=== PATIENT | female | born 1990 | race Hispanic/Latino ===

== ENCOUNTER 2020-03-28 06:59 | Inpatient (IN) | payer OTHER ==
[2020-03-28] MEDS ORDERED: CARBOPROST TROME 250 MCG/ML IM PRN (07:21)
[2020-03-28] MEDS ORDERED: Ringers Lactate 1,000 ML IV PRN (07:21)
[2020-03-28] MEDS ORDERED: PROMETHAZINE INJ 25 MG/ML AMP IM PRN (07:21)
[2020-03-28] MEDS ORDERED: METHYLERGONOVINE 0.2MG/ML AMP IM PRN (07:21)
[2020-03-28] MEDS ORDERED: BUTORPHANOL 1 MG/ML INJ IV PRN (07:21)
[2020-03-28] MEDS ORDERED: OXYTOCIN/LR 20 UNIT/1,000 ML BAG IV SCH ×2 (08:00→17:00)
[2020-03-28] MEDS ORDERED: Ringers Lactate 1,000 ML IV SCH (08:00)
[2020-03-28 08:11] LABS: Absolute Lymphocytes (CBC) 1.7 K/uL (0.7-4.9); Basophils % 0.3 % (0-1.3); Hematocrit 30.9 % (36.0-45.0); Lymphocytes % 15.1 % (15.3-44.8); MPV 8.2 fL (7.6-11.3)
--- NOTE | 2020-03-28 09:10 | PREOPHP ---
Date of Admission: 03/28/2020 History Of Present Illness: A 29-year-old, 3, para 2, history of herpes, herpes free interva l. This patient was scheduled for induction later in the week. Experienced spontaneous rupture of m embranes at 4 a.m., came to Labor and Delivery. Indeed has spontaneous rupture of membranes, clear f luid. Minimal contractions at this point. Labor talk given. She is Rh positive, immune to Rubella. Negative strep. COVID status is pending. We will start Pitocin at this point. Anticipate deliver y sometime later today. Full labor talk given. The patient has had epidurals with her other deliver ies, probably with this one too, but right now she of course is comfortable and requires nothing as f ar as analgesics. 38 weeks 4 days, spontaneous rupture of membranes, history of herpes, herpes free interval. Family History: Shows a grandfather with a heart attack, sister with gallstones, and aunt with diabe lanette. Allergies: PATIENT HAS NO ALLERGIES. Social History: Does not smoke. Medications: vitamins prior to admission. Physical Examination: HEENT: Clear. Pupils equal, round, reactive to light and accommodation. Conjunctivae well perfused . No oral, lingual, or buccal lesions. Chest and Lungs: Clear. Heart: Without murmurs, thrills, heaves, or rubs on previous visits. Breasts: Not examined today. Abdomen: Term size. Extremities: Clear without edema, cyanosis, or clubbing. Patient is 2-1/2, possibly 3, baby still -2 station; vertex; clear fluid noted. Anticipate delivery. We will start Pitocin at this point. EDUARD/MILES Voice ID: [id number]
[2020-03-28 09:15] VITALS: BMI 35.7
--- NOTE | 2020-03-28 09:25 | PN ---
Patient has a history of herpes in the buttocks area. She had an outbreak about a week ago. It has now completely resolved. I see nothing, she sees nothing, the nurses see nothing. At this point, th e patient has been given the option of proceeding vaginally. She has been on acyclovir or to have a . The patient chooses to have a vaginal delivery. She knows that the virus of course is inv isible and that we cannot guarantee that she did not have herpes at this moment, but this is what the standard has been throughout the country; if there is a herpes free interval, the patient is on acyc lovir, no visible lesions, then a vaginal delivery is offered. The patient, however, of course, has a choice to proceed with operative delivery if she so chooses, but this patient declines operative de mitchell. EDUARD/MILES Voice ID: [id number] Report ID: [id number]
--- NOTE | 2020-03-28 12:40 | PN ---
Svetlana Serra is navjot regularly, now on 12 milliunits of Pitocin, but does not seem to be feeling numb yet. Cervical exam shows no change whatsoever, definite clear fluid coming from the os. Baby looks very good on the monitor. Vital signs were all stable. If she has started having some discomfort in the next 0.5 hours, we will change out the Pitocin bag to make sure we have a fresh Pit ocin. The patient has requests no analgesics and looks quite calm at this point. We need to get mor e firm contractions. BERTRANDC/MODL Voice ID: [id number] Report ID: [id number]
[2020-03-28] MEDS ORDERED: ROPIVACAINE HCL 100 ML IV PRN (15:00)
[2020-03-28] MEDS ORDERED: ROPIVACAINE HCL 0.2% 20ML AMP IV ONE (15:00)
[2020-03-28] MEDS ORDERED: FENTANYL CITR 100 MCG/2 ML IV ONE (15:00)
[2020-03-28] MEDS ORDERED: BISACODYL 10 MG RECTAL SUPP PR PRN (16:17)
[2020-03-28] MEDS ORDERED: DOCUSATE NA/SENNA CONC 1 TAB PO PRN (16:17)
[2020-03-28] MEDS ORDERED: Oxycodone HCl/Acetaminophen 1 TAB TAB PO PRN ×2 (16:17)
[2020-03-28] MEDS ORDERED: DIPHENHYDRAMINE 25 MG TAB/CAP PO PRN (16:17)
[2020-03-28] MEDS ORDERED: ACETAMINOPHEN 500 MG TAB PO PRN (16:17)
[2020-03-28] MEDS ORDERED: LIDOCAINE 1% MPF 30 ML VIAL ONE (17:59)
[2020-03-28] MEDS ORDERED: Ringers Lactate 2,000 ML IV ONE (18:07)
--- NOTE | 2020-03-29 00:16 | OP ---
Surgeon: Yobany Bravo MD Indications And Procedure: A 29-year-old 3, para 2, 38 weeks 4 days, came in with spontaneou s rupture of membranes, clear fluid, Rh positive, immune to Rubella. Negative beta-strep screen. CO VID status unknown. Started on Pitocin augmentation. After achieving 4.5 to 5 cm, requested epidura l anesthesia, but during the epidural, begin to push, delivered precipitously but controlled a 7 poun ds 2 ounces female, Apgars 9 and 9. Sustained a vertical first-degree laceration below the clitoris, local infiltration, 2 stitches, [id number] with 2-0 plain, significant bleeder at that point bu t now stopped. Estimated blood loss during the procedure 250-300 cc, mostly from the small laceratio n. Schultze delivery of the placenta, which was heavily calcified, but otherwise normal and intact. Very small lochia amount at this point. Tolerated all procedures well. Final Diagnoses: Term intrauterine at 38 weeks 4 days, history of herpes on her buttocks a carmelita, more than a week of herpes free interval, on acyclovir, and declined , vaginal delivery precipitous but controlled. EDUARD/MILES Voice ID: [id number] Report ID: [id number]
[2020-03-29 00:35] LABS: RPR (Rapid Plasma Reagin) NON-REACT (NON-REACT)
[2020-03-29] MEDS: IBUPROFEN 600 MG TAB PO PRN ×2 (05:30→14:13)
--- NOTE | 2020-03-29 11:38 | DS ---
Hospital Course: A 29-year-old, 3, para 2, 38 weeks 4 days, experienced spontaneous rupture of membranes. Came into Labor and Delivery, was started on Pitocin augmentation. Had no anesthesia during the labor as she was requesting epidural, but precipitously delivered. Right after, the test dose was given. She delivered 7 pounds 2 ounces female, Apgars 9 and 9. Had 1 vertical laceration b elow the clitoris that was bleeding fairly significantly. Two rthhua-ky-tepel stitches with 2-0 chronometer tester leigh after local infiltration was effective in stopping the bleeding. Schultze delivery of the placen ta, which inspected and noted to be intact and normal. Less than 250 mL blood loss with the placenta and bleeding from the laceration. Rh positive, immune to rubella, negative strep test. COVID is st ill pending. ; afebrile, ambulating and voiding. Lochia is normal. The patient is taking Motrin, does not request any analgesics on dismissal. Full instructions given to report any tempera ture elevation of 100 degrees or greater, severe pain, heavy bleeding, or any other type of abnormali ty. I suggested she get the Tdap and flu shots, which she has not had during her , but has been offered. The patient will be dismissed later this afternoon after baby has been dismissed. Final Diagnoses: Term intrauterine at 38 weeks 4 days, spontaneous rupture membranes, vagi nal delivery. EDUARD/MILES Voice ID: [id number] Report ID: [id number]
[2020-03-29] MEDS ORDERED: Tdap (Diph,Pertuss(Acell),Tet Vac) 0.5 ML SYR IMVAC ONE (14:00)
[2020-03-29 16:11] VITALS: BP 127/75; TEMP 97.9
--- OUTSIDE RECORDS SUMMARY | 2020-03-29 17:26 | XMS REPORT | Continuity of Care Document ---
:1990 Author Organization [facility] t Address [address] [place] [address] Dr. Mcguire [address] [place] [id number] Care Team Providers Name Role Phone Unavailable Unavailable Unavailable Problems This patient has no known problems. Allergies, Adverse Reactions, Alerts This patient has no known allergies or adverse reactions. Medications This patient has no known medications. Procedures This patient has no known procedures. Results This patient has no known results.
[2020-04-01 17:47] LABS: HBsAG Nonreactive (Nonreactive)
== END 2020-03-29 17:50 | disposition home or self-care (01) | DRG 807 ==
LOC: L&D 06:59 → 2ND-WC 07:07
PROVIDERS: ADMIT Specialist; ATTEND Specialist
PROC: 10E0XZZ Delivery of Products of Conception, External Approach (ICD-10-PCS; principal; 2020-03-28)
PROC: 0HQ9XZZ Repair Perineum Skin, External Approach (ICD-10-PCS; 2020-03-28)
DX: O98.32 Other infections with a predominantly sexual mode of transmission complicating childbirth (principal); Z37.0 Single live birth; O70.0 First degree perineal laceration during delivery; A60.09 Herpesviral infection of other urogenital tract; Z3A.38 38 weeks gestation of pregnancy; Z23 Encounter for immunization; Z20.828 Contact with and (suspected) exposure to other viral communicable diseases
CPT/HCPCS: 36415; 85025; 86592; 86850; 86900; 86901; 87340; 90471; 90715; J2210; J2590; J2795; J3010; J7120; U0003

== ENCOUNTER 2022-05-10 22:37 | Emergency (ER) | payer OTHER ==
--- OUTSIDE RECORDS SUMMARY | 2022-05-10 22:40 | XMS REPORT | Continuity of Care Document ---
:1990 Author Organization [facility] t Address [address] [place] [address] Dr. Mcguire [address] [place] [id number] Care Team Providers Name Role Phone Unavailable Unavailable Unavailable Problems This patient has no known problems. Allergies, Adverse Reactions, Alerts This patient has no known allergies or adverse reactions. Medications This patient has no known medications. Procedures This patient has no known procedures. Results This patient has no known results.
[2022-05-10] MEDS ORDERED: ONDANSETRON 4 MG/2 ML VIAL ONE (23:41)
[2022-05-10] MEDS ORDERED: MAGNES/ALUMIN/SIMET 30ML UCUP ONE (23:41)
[2022-05-10] MEDS ORDERED: NA CHLORIDE 0.9% 1,000 ML ONE (23:42)
[2022-05-10] MEDS ORDERED: PANTOPRAZOLE 40 MG INJ ONE (23:42)
[2022-05-10] MEDS ORDERED: LIDOCAINE VISCOUS 2% SOLN 15 ML UDC ONE (23:42)
[2022-05-10 23:45] LABS: Lymphocytes % 16.5 % (15.3-44.8); MPV 7.7 fL (7.6-11.3); RBC Red Blood Cell Count 4.71 M/uL (3.86-4.86)
[2022-05-10 23:51] LABS: Urine Blood 2+ (Negative); Urine Glucose Negative (Negative); Urine Protein Negative (Negative); Urine Specific Gravity >=1.030 (1.005-1.030); Urine pH 5.5 (5.0-7.0)
[2022-05-10 23:56] LABS: Urine Bacteria <20 /HPF (<20); Urine Mucus 1+ /HPF (None Seen); Urine RBC 21-50 /HPF (None Seen)
[2022-05-11] LABS: Albumin 3.7 g/dL (3.4-5.0); Bilirubin Total 0.2 mg/dL (0.2-1.0); Potassium 4.3 mmol/L (3.5-5.1); Protein, Total 7.6 g/dL (6.4-8.2)
[2022-05-11 00:29] LABS: Urine Specific Gravity/Preg >1.030 (1.005-1.030)
[2022-05-11] MEDS ORDERED: FAMOTIDINE 20 MG/2 ML VIAL IV ONE (00:58)
--- NOTE | 2022-05-11 02:22 | EDPHYS ---
Physician Documentation [facility] Name: Svetlana Serra Age: 31 yrs Sex: Female : 1990 Arrival Date: 05/10/2022 Time: 22:38 Bed 7 Private MD: ED Physician Ceci Joyce HPI: 05/10 23:12 This 31 yrs old Female presents to ER via Ambulatory with complaints of sd2 abdominal pain. 23:12 31 yo F presents with CC of epigastric abdominal pain intermittently, sharp and burning sd2 in nature for the past week with associated vomiting. States worse with eating and drinking. Denies fevers, diarrhea or urinary symptoms. States started period today and does not believe she is .. Historical: - Allergies: 22:42 No Known Allergies; hb - PMHx: 22:42 None; hb - PSHx: 22:42 None; hb - Immunization history:: Adult Immunizations up to date. ROS: 23:12 Constitutional: Negative for fever, chills, and weight loss, Eyes: Negative for injury, sd2 pain, redness, and discharge, Cardiovascular: Negative for chest pain, palpitations, and edema, Respiratory: Negative for shortness of breath, cough, wheezing. 23:12 : Negative for dysuria, urinary frequency, hesitancy, urgency and hematuria. MS/Extremity: Negative for injury and deformity, Skin: Negative for injury, rash, and discoloration, Neuro: Negative for headache, numbness and tingling. 23:12 Abdomen/GI: Positive for abdominal pain, nausea and vomiting, Negative for diarrhea. Exam: 23:12 Constitutional: This is a well developed, well nourished patient who is awake, alert, sd2 and in no acute distress. Head/Face: Normocephalic, atraumatic. Eyes: EOMI, normal conjunctiva bilaterally Chest/axilla: Normal chest wall appearance and motion. Nontender with no deformity. Cardiovascular: Regular rate and rhythm with a normal S1 and S2. No gallops, murmurs, or rubs. 2+ distal pulses. Respiratory: Lungs have equal breath sounds bilaterally, clear to auscultation and percussion. No rales, rhonchi or wheezes noted. No increased work of breathing, no retractions or nasal flaring. Abdomen/GI: Soft, ND, mild TTP of the epigastrum, no rebound or guarding, negative Patel's sign Skin: Warm, dry with normal turgor. Normal color with no rashes, no lesions, and no evidence of cellulitis. MS/ Extremity: Pulses equal, no cyanosis. Neurovascular intact. Full, normal range of motion. Ambulatory without difficulty. Psych: Awake, alert, with orientation to person, place and time. Behavior, mood, and affect are within normal limits. Vital Signs: 22:41 BP 143 / 107; Pulse 82; Resp 16; Temp 97.6; Pulse Ox 100% on R/A; Weight 94.35 kg; hb Height 5 ft. 5 in. (165.10 cm); Pain 7/10; 22:50 BP 124 / 82; Pulse 61; Resp 16 S; Pulse Ox 100% on R/A; ha1 23:35 BP 122 / 78; Pulse 60; Resp 16 S; Pulse Ox 100% on R/A; ha1 05/11 00:30 BP 120 / 65; Pulse 65; Resp 16 S; Pulse Ox 100% on R/A; ha1 02:00 BP 112 / 59; Pulse 63; Resp 16; Pulse Ox 98% on R/A; jb4 05/10 22:41 Body Mass Index 34.61 (94.35 kg, 165.10 cm) hb MDM: 05/10 22:59 Patient medically screened. sd2 23:12 Differential Diagnosis Gastritis, cholecystitis, pancreatitis, SBO, diverticulitis, sd2 kidney stone, appendicitis, UTI, dehydration, electrolyte abnormality among others. Data reviewed: vital signs, nurses notes. 05/11 02:19 Data reviewed: lab test result(s). Counseling: I had a detailed discussion with the sd2 patient and/or guardian regarding: the historical points, exam findings, and any diagnostic results supporting the discharge/admit diagnosis, lab results, to return to the emergency department if symptoms worsen or persist or if there are any questions or concerns that arise at home. Medical screen evaluation completed. [facility] emergency medical condition absent. ED course: Labs and imaging reviewed. Labs grossly WNCL aside from mild leukocytosis. No LFT abnormalities. Pt with no RUQ tenderness to suggest a need for US at this time. Pain initially improved but patient did have some recurrence that improved with Pepcid. Will place on outpatient PPI and Carafate along with dietary modifications and patient to follow up with PCP and GI. She verbalizes understanding of discharge plan and strict return precautions. . 05/10 23:12 Order name: CBC with Diff; Complete Time: 23:52 sd2 05/10 23:12 Order name: CMP; Complete Time: 00:42 sd2 05/10 23:12 Order name: Lipase; Complete Time: 00:42 sd2 05/10 23:12 Order name: Urine Microscopic Only; Complete Time: 00:42 sd2 05/10 23:51 Order name: Urine Dipstick-Ancillary; Complete Time: 23:52 EDMS 05/10 23:12 Order name: IV Saline Lock; Complete Time: 23:57 sd2 05/10 23:12 Order name: Labs collected and sent; Complete Time: 23:57 sd2 05/11 00:01 Order name: Urine --Ancillary (enter results); Complete Time: 00:42 wm 05/10 23:12 Order name: Urine Dipstick-Ancillary (obtain specimen); Complete Time: 23:50 sd2 05/10 23:12 Order name: Urine Test (obtain specimen); Complete Time: 23:50 sd2 Administered Medications: 05/10 23:44 Drug: NS 0.9% 1000 ml Route: IV; Rate: 1 bolus; Site: left antecubital; 1 23:44 Drug: GI Cocktail without - (Maalox Suspension 30 ml, Lidocaine Liquid 2 % 15 ha1 ml) Route: PO; 05/11 00:05 Follow up: Response: No adverse reaction 1 05/10 23:45 Drug: Zofran (Ondansetron) 4 mg Route: IVP; Site: left antecubital; ha1 05/11 00:05 Follow up: Response: No adverse reaction; Nausea is decreased ha1 05/10 23:48 Drug: ProTONIX (pantoprazole) 40 mg Route: IVP; Site: left antecubital; ha1 05/11 00:05 Follow up: Response: No adverse reaction ha1 01:00 Drug: Pepcid (famotidine) 20 mg Route: PO; ha1 Disposition Summary: 05/11/22 02:22 Discharge Ordered Location: Home sd2 Problem: new sd2 Symptoms: have improved sd2 Condition: Stable sd2 Diagnosis - Epigastric pain sd2 - Dyspepsia sd2 Followup: sd2 - With: Private Physician - When: 2 - 3 days - Reason: Recheck today's complaints, Continuance of care, Re-evaluation by your physician Followup: sd2 - With: Abdias Lopez MD - When: 2 - 3 days - Reason: Recheck today's complaints, Continuance of care, Re-evaluation by your physician Discharge Instructions: - Discharge Summary Sheet sd2 - Abdominal Pain, Adult sd2 - Food Choices for Gastroesophageal Reflux Disease, Adult sd2 - Gastritis, Adult sd2 Forms: - Medication Reconciliation Form sd2 - Thank You Letter sd2 - Antibiotic Education sd2 - Prescription Opioid Use sd2 Prescriptions: - omeprazole 40 mg Oral capsule,delayed release(DR/EC) - take 1 capsule by ORAL route once daily for 2 weeks before a meal; 20 capsule; sd2 Refills: 0, Product Selection Permitted - Carafate 1 gram Oral Tablet - take 1 tablet by ORAL route 4 times per day take on an empty stomach, beginning sd2 on waking and last dose at bedtime prior to meals; 100 tablet; Refills: 0, Product Selection Permitted Signatures: Dispatcher [employer] Debora Dee RN RN Ceci Joyce MD MD sd2 Cherry Watt RN RN ha1 Corrections: (The following items were deleted from the chart) 01:54 05/10 23:53 URINE DIPSTICK--ANCILLARY+U.LAB.BRZ ordered. EDOK MARC
--- NOTE | 2022-05-11 02:22 | ER ---
Nurse's Notes [facility] Name: Svetlana Serra Age: 31 yrs Sex: Female : 1990 Arrival Date: 05/10/2022 Time: 22:38 Bed 7 Private MD: Diagnosis: Epigastric pain;Dyspepsia Presentation: 05/10 22:41 Chief complaint: Burning epigastric pain and vomiting x 2 hours. Coronavirus screen: At this time, the client does not indicate any symptoms associated with coronavirus-19. Ebola Screen: No symptoms or risks identified at this time. Initial Sepsis Screen: Does the patient meet any 2 criteria? No. Patient's initial sepsis screen is negative. Does the patient have a suspected source of infection? No. Patient's initial sepsis screen is negative. Risk Assessment: Do you want to hurt yourself or someone else? Patient reports no desire to harm self or others. Onset of symptoms was May 10, 2022. 22:41 Method Of Arrival: Ambulatory hb 22:41 Acuity: VÍCTOR 3 hb 23:56 Initial Sepsis Screen: Does the patient have a suspected source of infection?. tw5 Historical: - Allergies: 22:42 No Known Allergies; hb - PMHx: 22:42 None; hb - PSHx: 22:42 None; hb - Immunization history:: Adult Immunizations up to date. Screenin:01 Abuse screen: Denies threats or abuse. Denies injuries from another. Nutritional ha1 screening: No deficits noted. Tuberculosis screening: No symptoms or risk factors identified. Fall Risk None identified. Assessment: 22:50 General: Appears uncomfortable, Behavior is calm, cooperative. Pain: Complains of pain ha1 in mid epigastric Pain radiates to left shoulder Pain currently is 5 out of 10 on a pain scale. Quality of pain is described as burning, crampy, Pain began suddenly, 2 hours ago. Neuro: Level of Consciousness is awake, alert, obeys commands, Oriented to person, place, time, situation. Cardiovascular: Heart tones S1 S2 present Patient's skin is warm and dry. Rhythm is sinus rhythm. Respiratory: Airway is patent Trachea midline Respiratory effort is even, unlabored, Breath sounds are clear bilaterally. GI: Abdomen is non-distended, obese, Bowel sounds present X 4 quads. Abd is soft and non tender X 4 quads. Reports epigastric pain. : No signs and/or symptoms were reported regarding the genitourinary system. EENT: No deficits noted. No signs and/or symptoms were reported regarding the EENT system. Derm: Skin is pink, warm \T\ dry. Musculoskeletal: Circulation, motion, and sensation intact. Range of motion: intact in all extremities. 23:35 Reassessment: Patient and/or family updated on plan of care and expected duration. Pain ha1 level reassessed. Patient is alert, oriented x 3, equal unlabored respirations, skin warm/dry/pink. 05/11 00:30 Reassessment: Patient and/or family updated on plan of care and expected duration. Pain ha1 level reassessed. Patient is alert, oriented x 3, equal unlabored respirations, skin warm/dry/pink. Patient denies pain at this time. Patient states feeling better. 01:30 Reassessment: Patient appears in no apparent distress at this time. Patient and/or jb4 family updated on plan of care and expected duration. Pain level reassessed. Patient is alert, oriented x 3, equal unlabored respirations, skin warm/dry/pink. 02:30 Reassessment: Patient appears in no apparent distress at this time. Patient and/or jb4 family updated on plan of care and expected duration. Pain level reassessed. Patient is alert, oriented x 3, equal unlabored respirations, skin warm/dry/pink. Vital Signs: 05/10 22:41 BP 143 / 107; Pulse 82; Resp 16; Temp 97.6; Pulse Ox 100% on R/A; Weight 94.35 kg; hb Height 5 ft. 5 in. (165.10 cm); Pain 7/10; 22:50 BP 124 / 82; Pulse 61; Resp 16 S; Pulse Ox 100% on R/A; ha1 23:35 BP 122 / 78; Pulse 60; Resp 16 S; Pulse Ox 100% on R/A; ha1 05/11 00:30 BP 120 / 65; Pulse 65; Resp 16 S; Pulse Ox 100% on R/A; ha1 02:00 BP 112 / 59; Pulse 63; Resp 16; Pulse Ox 98% on R/A; jb4 05/10 22:41 Body Mass Index 34.61 (94.35 kg, 165.10 cm) ED Course: 05/10 22:38 Patient arrived in ED. as 22:40 Ceci Joyce MD is Attending Physician. sd2 22:42 Triage completed. hb 22:42 Arm band placed on. hb 22:50 Patient has correct armband on for positive identification. Placed in gown. Bed in low ha1 position. Call light in reach. Side rails up X 1. 23:10 Cherry Watt, LUIS EDUARDO is Primary Nurse. ha1 23:35 Inserted saline lock: 20 gauge in left antecubital area, using aseptic technique. Blood ha1 collected. 05/11 02:20 Abdias Lopez MD is Referral Physician. sd2 02:30 No provider procedures requiring assistance completed. IV discontinued, intact, jb4 bleeding controlled, No redness/swelling at site. Pressure dressing applied. Administered Medications: 05/10 23:44 Drug: NS 0.9% 1000 ml Route: IV; Rate: 1 bolus; Site: left antecubital; ha1 23:44 Drug: GI Cocktail without - (Maalox Suspension 30 ml, Lidocaine Liquid 2 % 15 ha1 ml) Route: PO; 05/11 00:05 Follow up: Response: No adverse reaction ha1 05/10 23:45 Drug: Zofran (Ondansetron) 4 mg Route: IVP; Site: left antecubital; ha1 05/11 00:05 Follow up: Response: No adverse reaction; Nausea is decreased ha1 05/10 23:48 Drug: ProTONIX (pantoprazole) 40 mg Route: IVP; Site: left antecubital; ha1 05/11 00:05 Follow up: Response: No adverse reaction ha1 01:00 Drug: Pepcid (famotidine) 20 mg Route: PO; ha1 Medication: 02:30 VIS not applicable for this client. jb4 Outcome: 02:22 Discharge ordered by . sd2 02:30 Discharged to home ambulatory, with family. jb4 02:30 Condition: stable 02:30 Discharge instructions given to patient, family, Instructed on discharge instructions, follow up and referral plans. medication usage, Demonstrated understanding of instructions, follow-up care, medications, Prescriptions given X 2. 02:32 Patient left the ED. jb4 Signatures: Nae Castro Heather, RN RN hb James Morales RN RN jb4 Lili Yusuf tw5 Ceci Joyce MD MD sd2 Cherry Watt RN RN ha1
[2022-05-11 02:36] VITALS: TEMP 97.6
[2022-05-11 02:41] VITALS: BP 112/59; O2SAT 98
== END 2022-05-11 02:32 | disposition home or self-care (01) ==
LOC: ER 22:37
DX: R10.13 Epigastric pain (principal)
CPT/HCPCS: 85025; 36415; 81025; 83690; 80053; 96375; 96374; 99284; C9113; J7030; J2405; 81003; 81015